=== PATIENT | male | born 1960 | race Two or more races ===

== ENCOUNTER 2022-04-06 08:00 | Inpatient (IN) | payer OTHER ==
[~2022-04-06] VITALS: Ht 167.6 cm; Wt 73.0 kg
[2022-04-06] MEDS ORDERED: TOPROL XL25 M1 PO (08:47)
== END 2022-04-14 19:59 | DRG 470 ==
LOC: O/R 04-12 06:00 → SURH 04-12 07:00 → O/R 04-12 16:16 → SURG 04-13 13:56
PROVIDERS: ADMIT Orthopaedic Surgery; ATTEND Orthopaedic Surgery
PROC: 0SRC0JZ Replacement of Right Knee Joint with Synthetic Substitute, Open Approach (ICD-10-PCS; principal; 2022-04-12 07:00)
DX: M17.11 Unilateral primary osteoarthritis, right knee (principal); D62 Acute posthemorrhagic anemia; M85.661 Other cyst of bone, right lower leg; I10 Essential (primary) hypertension; Z96.651 Presence of right artificial knee joint; Z20.822 Contact with and (suspected) exposure to COVID-19